=== PATIENT | female | born 1935 | race Caucasian/White ===

== ENCOUNTER 2017-11-25 08:03 | Day surgery (SDC) | payer OTHER ==
[2017-11-25 08:27] VITALS: BMI 28.3
[2017-11-25] MEDS ORDERED: PROPOFOL 20 ML ONE ×4 (08:53)
[2017-11-25] MEDS ORDERED: LIDOCAINE HCL 2% (20ML MULTI-DOSE VIAL) NR ONE (08:54)
[2017-11-25 11:40] VITALS: BP 122/58; PULSE 62; TEMP 97
--- NOTE | 2017-11-28 13:54 | PATH ---
Surgical Pathology Report Patient Name: BRIDGET RUSSELL [facility]. Rec. #: [id number] /Age/Gender: 1935 (Age: 82) / F Account: [id number] Location: [facility]-ENDOSCOPY Taken: 11/25/2017 Received: 11/25/2017 Reported: 11/28/2017 Physicians: Monika Maurer M.D. Specimen(s) Received A: BX DUODENUM B: BX ANTRUM C: BX GASTRIC BODY D: BX POLYPS RIGHT COLON Clinical History Preoperative diagnosis: Weight loss, rule out gastric cancer, family history of stomach cancer, cancer screening Postoperative diagnosis: Atrophic gastritis, duodenitis, right colon polyps, diverticulosis Final Diagnosis A. DUODENUM, SECOND PORTION/BULB, BIOPSY: DUODENAL MUCOSA WITHOUT SIGNIFICANT PATHOLOGIC FINDINGS. B. STOMACH, ANTRUM, BIOPSY: GASTRIC ANTRAL MUCOSA WITH MODERATE CHRONIC GASTRITIS. IMMUNOHISTOCHEMICAL STAIN FOR H. PYLORI IS NEGATIVE. C. STOMACH, BODY, BIOPSY: GASTRIC BODY MUCOSA WITH MILD CHRONIC GASTRITIS. IMMUNOHISTOCHEMICAL STAIN FOR H. PYLORI IS NEGATIVE. D. COLON, RIGHT, POLYPS, BIOPSY: TUBULAR ADENOMA(S). Electronically Signed Alexia Ruvalcaba M.D. Gross Description A. Received in formalin, labeled "biopsy second portion of duodenum and duodenal bulb" are 3 pedroza, irregular portions of soft tissue ranging from 0.3-0.4 cm. in greatest dimension. The specimens are submitted in toto in one cassette. B. Received in formalin, labeled "biopsy antrum" are 6 pedroza, irregular portions of soft tissue ranging from 0.2-0.6 cm. in greatest dimension. The specimens are submitted in toto in one cassette. C. Received in formalin, labeled "biopsy gastric body" are 4 pedroza, irregular portions of soft tissue ranging from 0.3-0.7 cm. in greatest dimension. The specimens are submitted in toto in one cassette. D. Received in formalin, labeled "biopsy right colon polyp" are 7 pedroza, irregular portions of soft tissue ranging from 0.1-0.3 cm. in greatest dimension. The specimens are submitted in toto in one cassette. /11/25/2017 saudi11/25/2017
== END 2017-11-25 11:00 | disposition home or self-care (01) ==
LOC: JASU-ENDO 08:03
PROVIDERS: ATTEND Internal Medicine Gastroenterology
PROC: 0DB68ZX Excision of Stomach, Via Natural or Artificial Opening Endoscopic, Diagnostic (ICD-10-PCS; 2017-11-25)
PROC: 0DBK8ZX Excision of Ascending Colon, Via Natural or Artificial Opening Endoscopic, Diagnostic (ICD-10-PCS; 2017-11-25)
PROC: 0DB98ZX Excision of Duodenum, Via Natural or Artificial Opening Endoscopic, Diagnostic (ICD-10-PCS; principal; 2017-11-25 09:00)
DX: Z12.11 Encounter for screening for malignant neoplasm of colon (principal); R63.4 Abnormal weight loss; Z68.28 Body mass index [BMI] 28.0-28.9, adult; Z80.0 Family history of malignant neoplasm of digestive organs; K29.50 Unspecified chronic gastritis without bleeding; D12.2 Benign neoplasm of ascending colon; I10 Essential (primary) hypertension; E78.5 Hyperlipidemia, unspecified; M06.9 Rheumatoid arthritis, unspecified; K44.9 Diaphragmatic hernia without obstruction or gangrene; K57.30 Diverticulosis of large intestine without perforation or abscess without bleeding
CPT/HCPCS: 88305-TC; 88342-TC